=== PATIENT | female | born 1950 | race Caucasian/White ===

== ENCOUNTER 2021-11-08 11:10 | Emergency (ER) | payer OTHER, BC ==
[2021-11-08 11:13] VITALS: BP 98/66; PULSE 82; TEMP 98.6; BMI 21.7
[2021-11-08] MEDS ORDERED: IBUPROFEN 600 MG TABLET (FP) PO ONE ×2 (12:52→12:55)
== END 2021-11-08 13:34 | disposition home or self-care (01) ==
LOC: FER 11:10
PROC: 2W3CX1Z Immobilization of Right Lower Arm using Splint (ICD-10-PCS; principal; 2021-11-08)
DX: S52.501A Unspecified fracture of the lower end of right radius, initial encounter for closed fracture (principal); W01.0XXA Fall on same level from slipping, tripping and stumbling without subsequent striking against object, initial encounter
CPT/HCPCS: 29125; 73110-TC-RT-FY; 73130-TC-RT-FY; 99283-25

== ENCOUNTER 2022-09-24 10:07 | Emergency (ER) | payer OTHER, BC ==
[2022-09-24 10:27] VITALS: BP 144/81; PULSE 92; RESP 18; TEMP 98.3; BMI 23.3
[2022-09-24] MEDS ORDERED: DIPHTH,PERTUSS(ACELL),TET 0.5 ML DISP.SYRIN IM ONE ×2 (11:50→11:51)
== END 2022-09-24 12:10 | disposition home or self-care (01) ==
LOC: FER 10:07
PROC: 3E0234Z Introduction of Serum, Toxoid and Vaccine into Muscle, Percutaneous Approach (ICD-10-PCS; principal; 2022-09-24)
DX: S42.292A Other displaced fracture of upper end of left humerus, initial encounter for closed fracture (principal); W01.0XXA Fall on same level from slipping, tripping and stumbling without subsequent striking against object, initial encounter
CPT/HCPCS: 73030-TC-LT-FY; 90471; 90715; 99284-25